=== PATIENT | male | born 1990 | race African-American/Black ===

== ENCOUNTER 2016-07-01 18:37 | Emergency (ER) | payer MEDICAID, OTHER ==
[~2016-07-01] VITALS: Ht 185.4 cm; Wt 100.5 kg
[~2016-07-01 18:37] MED LIST: NAPR-688 PO
[2016-07-01 19:04] VITALS: Ht 185.4 cm; Wt 100.5 kg
[2016-07-01 21:10] LABS: URINE BLOOD (Dip) POC Trace-intact (NEGATIVE)
--- NOTE | 2016-07-01 21:19 | ERD ---
ER Documentation Chief Complaint Date/Time DATE: 07/01/16 TIME: 21:14 Chief Complaint Pain at the tip of the penis when urinating HPI Patient is a 25-year-old male who presents to the emergency department with penile pain. Patient states the pain has been present for the last 4-5 days. Patient reports pain with urination only. Patient states that he recently started having anal sex with a new partner. He denies any penile discharge, scrotal swelling or scrotal pain.. Patient denies any fever, chills, nausea, vomiting, abdominal pain. Patient is concerned about STDs and is requesting testing today. ROS All systems reviewed and are negative except as per history of present illness. Medications Home Meds Active Scripts Naproxen* (Naproxen*) 500 Mg Tablet, 500 MG PO BID, #20 TAB Prov:LANE JOSUE DO 11/30/15 Allergies Allergies: Coded Allergies: No Known Drug Allergies (Verified Allergy, Unknown, 11/30/15) PMhx/Soc History of Surgery: Yes (appendicitis) Anesthesia Reaction: No Hx Neurological Disorder: No Hx Respiratory Disorders: No Hx Cardiac Disorders: No Hx Psychiatric Problems: No Hx Miscellaneous Medical Probl: No Hx Alcohol Use: Yes (social) Hx Substance Use: No Hx Tobacco Use: Yes (social) FmHx Family History: No diabetes Physical Exam Vitals Vital Signs Date Time Temp Pulse Resp B/P Pulse Ox O2 Delivery O2 Flow Rate FiO2 07/01/16 19:04 99.7 96 20 139/77 98 Physical Exam GENERAL: Well-developed, well-nourished male. Appears in no acute distress. HEAD: Normocephalic, atraumatic. EYES: Pupils are equally reactive bilaterally. EOMs grossly intact. No conjunctival erythema. ENT: Moist mucous membranes. No uvula deviation. No kissing tonsils. NECK: Supple. No lymphadenopathy or thyromegaly. No meningismus. LUNG: Clear to auscultation bilaterally. No rhonchi, wheezing, rales or coarse breath sounds. HEART: Regular rate and rhythm. No murmurs, rubs or gallops. ABDOMEN: No scars, ecchymosis or rashes noted. Soft, nontender, and nondistended. Positive bowel sounds in all four quadrants. No rebound tenderness , no guarding. (-) McBurneys point tenderness. No CVA tenderness. 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 Normal, circumcised penis without any lesions, masses or deformities. No penile discharge noted. Normal scrotum without any masses, tenderness, swelling or erythema. No inguinal hernias. Normal cremasteric reflex. No phimosis. No paraphimosis. Right sided lymph node palpated in the inguinal region. 1 centimeter, mobile, soft lymph node BACK: No midline tenderness. EXTREMITIES: Equal pulses bilaterally. No peripheral clubbing, cyanosis or edema. No unilateral leg swelling. NEUROLOGIC: Alert and oriented. Moving all four extremities without any difficulty. Normal speech. Steady gait. SKIN: Normal color. Warm and dry. No rashes or lesions. Results 24 hrs Laboratory Tests Test 07/01/16 21:12 Bedside Urine Blood Trace-intact Bedside Urine Glucose (UA) Negative Bedside Urine Ketones (LAB) Negative Bedside Urine Leukocyte Esterase (L Negative Bedside Urine Nitrite (LAB) Negative Bedside Urine Protein (LAB) Trace Bedside Urine pH (LAB) 6.0 Current Medications Medications (Trade) Dose Ordered Sig/Dominic Route PRN Reason Start Time Stop Time Status Last Admin Dose Admin Azithromycin (Zithromax) 1,000 mg ONCE ONCE PO 07/01/16 21:30 07/01/16 21:31 DC 07/01/16 21:19 Ceftriaxone Sodium (Rocephin) 250 mg ONCE ONCE IM 07/01/16 21:30 07/01/16 21:31 DC 07/01/16 21:19 Lidocaine (Xylocaine 1% (Mdv) 20 ml) 20 ml ONCE ONCE SC 07/01/16 21:30 07/01/16 21:31 DC 07/01/16 21:19 Procedures/MDM MEDICAL DECISION MAKING: This is a 25-year-old male who presents with penile pain 4-5 days. Patient reports recently having anal sex with new partner. Vital signs were reviewed. Patient was afebrile. Patient was not hypoxic. Physical exam findings were unremarkable. Urine dip is negative for acute infection. Urine was sent for STD testing. Results pending. Patient was empirically treated for STDs at this time with azithromycin and Rocephin. Given these findings, the patients presentation is most consistent with penile pain. I have a much lower clinical concern for pyelonephritis, nephrolithiasis, appendicitis, epididymitis, urethritis, orchitis, balanitis, prostatitis, phimosis, priapism, incarcerated hernia or strangulated hernia. DISCHARGE: At this time, patient is stable for discharge and outpatient management. I have instructed the patient to follow-up with his/her primary care physician in 1-2 days for further workup on sexual transmitted diseases. Unable to rule out syphilis or HIV at this time. I have instructed the patient to promptly return to the ER for any new or worsening symptoms including increased pain, swelling, redness, warmth or fever. The patient and/or family expressed understanding of and agreement with this plan. All questions were answered. Home care instructions were provided. Departure Diagnosis: Primary Impression: Penile pain Additional Impression: Concern about STD in male without diagnosis Condition: Stable Patient Instructions: What Are Sexually Transmitted Diseases (STDs)? Referrals: COMMUNITY CLINICS YOU HAVE RECEIVED A MEDICAL SCREENING EXAM AND THE RESULTS INDICATE THAT YOU DO NOT HAVE A CONDITION THAT REQUIRES URGENT TREATMENT IN THE EMERGENCY DEPARTMENT. FURTHER EVALUATION AND TREATMENT OF YOUR CONDITION CAN WAIT UNTIL YOU ARE SEEN IN YOUR DOCTORS OFFICE WITHIN THE NEXT 1-2 DAYS. IT IS YOUR RESPONSIBILITY TO MAKE AN APPOINTMENT FOR FOLOW-UP CARE. IF YOU HAVE A PRIMARY DOCTOR --you should call your primary doctor and schedule an appointment IF YOU DO NOT HAVE A PRIMARY DOCTOR YOU CAN CALL OUR PHYSICIAN REFERRAL HOTLINE AT IF YOU CAN NOT AFFORD TO SEE A PHYSICIAN YOU CAN CHOSE FROM THE FOLLOWING [facility] [address] [facility]. [facility] [address] [facility]. [facility] [address] [facility] [address] [facility] [address] [facility]. [facility]. [address] [facility]. [facility] YOU HAVE RECEIVED A MEDICAL SCREENING EXAM AND THE RESULTS INDICATE THAT YOU DO NOT HAVE A CONDITION THAT REQUIRES URGENT TREATMENT IN THE EMERGENCY DEPARTMENT. FURTHER EVALUATION AND TREATMENT OF YOUR CONDITION CAN WAIT UNTIL YOU ARE SEEN IN YOUR DOCTORS OFFICE WITHIN THE NEXT 1-2 DAYS. IT IS YOUR RESPONSIBILITY TO MAKE AN APPOINTMENT FOR FOLOW-UP CARE. IF YOU HAVE A PRIMARY DOCTOR --you should call your primary doctor and schedule and appointment IF YOU DO NOT HAVE A PRIMARY DOCTOR YOU CAN CALL OUR PHYSICIAN REFERRAL HOTLINE AT . IF YOU CAN NOT AFFORD TO SEE A PHYSICIAN YOU CAN CHOSE FROM THE FOLLOWING [facility] INSTITUTIONS: [facility] [address] [place] [address] [facility] [address] [place] [address] [facility] [address] [place] [address] Additional Instructions: Call your primary care doctor TOMORROW for an appointment during the next 1-2 days.See the doctor sooner or return here if your condition worsens before your appointment time. Patient will be empirically treated for STDs. Culture results pending. Unable to rule out HIV, syphilis. Patient should follow with his primary care physician for further testing. ELISSA WALLACE PA-C Jul 01, 2016 21:19
[2016-07-01] MEDS ORDERED: AZITHROMYCIN 250 MG TAB PO ONE (21:30)
[2016-07-01] MEDS ORDERED: CEFTRIAXONE 250 MG INJ IM ONE (21:30)
[2016-07-01] MEDS ORDERED: LIDOCAINE 1% (MDV) 20 ML INJ SC ONE (21:30)
== END 2016-07-01 22:42 | disposition left against medical advice (07) ==
LOC: FTE 18:37
DX: N48.89 Other specified disorders of penis (principal); F17.210 Nicotine dependence, cigarettes, uncomplicated
CPT/HCPCS: 81003; 87591; J0696; Z7610; 96372